=== PATIENT | male | born 1970 | race Caucasian/White ===

== ENCOUNTER → 2017-03-09 | Outpatient (CLI) | payer BC ==
[~2017-03-09] MED LIST: ASPIR 8181 MG PO; NKHM
[2017-03-09 17:13] LABS: BASO # 0.1 10*3/uL (0.0-0.1); BASO % 0.8 % (0.0-1.0); EOS # 0.3 10*3/uL (0.0-0.4); HEMATOCRIT 48.1 % (42.0-52.0); LYMPH # 2.8 10*3/uL (1.3-4.4); LYMPH % 21.8 % (27.0-41.0); MEAN CELL VOLUME 93.6 fl (80.0-94.0); MEAN CORPUSCULAR HGB 31.1 pg (27.0-31.0); MEAN CORPUSCULAR HGB CONC 33.3 g/dl (33.0-37.0); MEAN PLATELET VOLUME 9.1 fl (9.6-12.3); MONO # 0.7 10*3/uL (0.1-1.0); MONO % 5.5 % (3.0-9.0); NEUT % 69.6 % (47.0-73.0); PLATELET COUNT AUTOMATED 283 10*3/uL (130-400); RED BLOOD COUNT 5.14 10*6/uL (4.50-5.90); RED CELL DISTRI WIDTH 13.5 % (0-14.5); WHITE BLOOD COUNT 12.9 10*3/uL (4.8-10.8)
[2017-03-09 17:29] LABS: ALBUMIN 3.3 gm/dl (3.1-4.5); ALKALINE PHOSPHATASE 71 U/L (45-117); BUN 17 mg/dl (7-24); CHLORIDE 103 mmol/L (98-107); CHOLESTEROL 172 mg/dL (<200); CREATININE 1.12 mg/dL (0.70-1.30); HDL CHOLESTEROL 33 mg/dl (40-60); LDL CHOLESTEROL 87 mg/dL (9-159); MAGNESIUM 1.5 mg/dL (1.5-2.1); POTASSIUM 3.9 mmol/L (3.5-5.1); SGOT/AST 8 IU/L (3-35); SGPT/ALT 18 U/L (12-78); SODIUM 137 mmol/L (136-145); TOTAL PROTEIN 7.8 gm/dL (6.4-8.2); TRIGLYCERIDES 258 mg/dl (<150); VLDL CHOLESTEROL 52 mg/dL (6-40)
== END | disposition home or self-care (01) ==
LOC: LAB 16:23 → US 16:30
PROVIDERS: Family Medicine
DX: E11.65 Type 2 diabetes mellitus with hyperglycemia (principal); L97.522 Non-pressure chronic ulcer of other part of left foot with fat layer exposed; E78.5 Hyperlipidemia, unspecified; R22.0 Localized swelling, mass and lump, head; Z72.0 Tobacco use

== ENCOUNTER → 2018-08-25 | Outpatient (CLI) | payer OTHER ==
[~2018-08-25] MED LIST changes: +AMARYL2 MG PO; +ASPIRIN ADULT L81 M2 PO; +CIPROFLOXACIN500 M4 PO; +CLOPIDOGREL75 MG PO; +HYDR25T PO; +LISINOPRIL-HCT1 EACH PO; +LISINOPRIL10 M1 PO; +METFORMIN HYD1000 MG PO; +SIMVASTATIN10 MG PO; +VANCOMYCIN HCL1 GM IV; +VANCOMYCIN2 GM/500 M IV; +ZOSYN 3.373.375 GM/5 IV
== END | disposition home or self-care (01) ==
LOC: RAD 17:22
DX: R22.41 Localized swelling, mass and lump, right lower limb (principal); L97.511 Non-pressure chronic ulcer of other part of right foot limited to breakdown of skin

== ENCOUNTER 2018-09-07 16:38 | Inpatient (IN) | payer OTHER ==
[~2018-09-07] VITALS: Ht 175.2 cm; Wt 139.7 kg
--- NOTE | ~2018-09-07 | O ---
[place], [place] OPERATIVE NOTE NAME: MARIAMA PARSON UNIT #: [id number] ROOM: 404 DOCTOR: YURIY GUIDRY DPM BIRTHDATE: [birth year] DOS: 09/09/2018 SURGEON: Yuriy Guidry DPM. CORE MACHINE OPERATOR: Dr. Amanda Castro, resident. PREOPERATIVE DIAGNOSIS: Infection, probable osteomyelitis, infected ulcer, right great toe. POSTOPERATIVE DIAGNOSIS: Infection, probable osteomyelitis, infected ulcer, right great toe. PROCEDURE: I and D of infection, right great toe with bone biopsy. ANESTHESIA: LMAC. INJECTABLES: 10 mL of 0.5% Marcaine plain. ESTIMATED BLOOD LOSS: About 3 mL. PATHOLOGY: Bone for pathology and bone for cultures. COMPLICATIONS: None. DESCRIPTION OF PROCEDURE: After appropriate preoperative evaluation, the patient brought in the OR and placed on the OR table in supine position. Anesthesia was then administered per anesthesia record. Next, a total of 10 mL of 0.5% Marcaine plain was injected in field block fashion of the right great toe. The area was then prepped and draped in the usual sterile manner. Right foot was lowered to surgical field. Attention directed to the ulcer, plantar medial IPJ of the right great toe where there was noted to be malodor. Edema and erythema about the toe. The area was debrided incised and there was noted to be a fairly significant amount of malodor with some pulling mild purulent drainage. The IPJ was exposed and bone was exposed in the area, and was debrided of any nonviable and fibrotic tissue. Wound edges were debrided as well. Next, using a rongeur, a bone biopsy was taken from the head of the proximal phalanx of the right great toe. Then, bone cultures were taken of the area as well. The area was flushed with 3 L of normal saline using a pulse cotton weigher operator. Packing, dry dressing was applied. The patient tolerated procedure well. He was transferred from recovery with vital signs stable and intact. Wound VAC will be ordered and applied. Continue IV antibiotics per Infectious Disease, and the patient will continue to be followed while the hospital and then follow up as an outpatient. [place], [place] OPERATIVE NOTE NAME: EBMARIAMA Wisdom UNIT #: [id number] ROOM: 404 DOCTOR: YURIY GUIDRY DPM BIRTHDATE: [birth year] YURIY GUIDRY DPM CM:OPRECORD:OPERATIVE NOTE [id number] YURIY GUIDRY DPM 09/19/18 0819 interface
--- NOTE | ~2018-09-07 | PR ---
[place], [place] PROGRESS NOTE NAME: MARIAMA PARSON [facility] #: [id number] UNIT #: [id number] ROOM: 404 DOCTOR: GEMINI CHARLES DPM BIRTHDATE: [birth year] DOS: SUBJECTIVE: The patient seen one day post incision and drainage with bone biopsy of the right hallux. The patient is resting comfortably in bed. OBJECTIVE: Upon removal of packing and dressing, there is no foul odor. No signs of further abscess or purulent drainage. Decreased erythema noted. ASSESSMENT: Osteomyelitis, cellulitis, abscess first right toe. PLAN: Dressing and packing changes, the patient will be ordered to be changed daily. They are waiting for wound VAC placement and the patient will be seen for continued care and followup. GEMINI CHARLES DPM CM:PNTRANS [id number] GEMINI CHARLES DPM 09/11/18 1032 interface
--- NOTE | ~2018-09-07 | CON ---
[place], [place] REPORT OF CONSULTATION NAME: MARIAMA PARSON UNIT #: [id number] ROOM: 404 DOCTOR: GEMINI CHARLES DPM BIRTHDATE: [birth year] DOS: 09/08/2018 SUBJECTIVE: The patient was seen yesterday by Dr. Guidry at the office for an ulceration. The patient was admitted to the hospital for IV antibiotics. Infectious Disease consultation and bone biopsy. PAST SURGICAL HISTORY: Neck IV filter, status post left foot surgery. PAST MEDICAL HISTORY: Increased BMI; diabetic neuropathy; previous DVT, left leg; essential hypertension; GERD; CVA; hyperlipidemia; mass, lateral neck; type 2 diabetes, non-insulin dependent. SOCIAL HISTORY: Denies alcohol or illicit drug use. Tobacco abuse 1-1.5 packs per day for 40 years. FAMILY HISTORY: Father alive and well. Mother of CVA. ALLERGIES: No known drug allergies. LOWER EXTREMITY EXAMINATION: Pedal pulses palpable, decreased epicritic sensations. There is an ulceration to the medial IPJ of the right hallux with serous drainage. The ulceration extends to the level of the bone. The patient's right foot MRI was consistent with osteomyelitis of the proximal and distal phalanx of the right hallux. ASSESSMENT: Cellulitis, infection of the right hallux with possible osteomyelitis, diabetes, diabetic neuropathy. PLAN: Evaluation and management discussed with the patient. Dr. Guidry performed an incision and drainage with bone biopsy with possible amputation of the right hallux. The patient understood this in detail and will be reassessed tomorrow before surgery by Dr. Guidry. The orders were written for n.p.o. after midnight and the consent for surgery. The patient will discuss the case further with Dr. Guidry tomorrow. GEMINI CHARLES DPM CM:CONSTR:REPORT OF CONSULTATION 1630 09/09/18 1430 interface
--- NOTE | ~2018-09-07 | CON ---
[place], [place] REPORT OF CONSULTATION [id number] UNIT #: [id number] ROOM: 404 [facility] [birth year] DOS: 09/11/2018 CARDIOLOGY CONSULTATION HISTORY OF PRESENT ILLNESS: The patient is a 48-year-old male who came in with sepsis and osteomyelitis, had a surgery done. The patient has severe peripheral arterial disease and I have taken care of him with peripheral arterial disease in the past with an intervention. The patient developed a wound. I discussed at length. Flow frequency was markedly diminished in both lower extremities, especially at the superficial femoral and below, both right and left also. Diffuse atherosclerosis noted with diffuse peripheral arterial disease monophasic and both inlet and outlet vessels are considered also and infrapopliteal vessels also. Severe peripheral artery disease with the wound and osteomyelitis and the surgery evaluated for healing of the wound, the patient should have improved perfusion that may help and the aortobifemoral angio with possible revascularization. Options, procedure, complications, morbidity, mortality explained to the patient. Both dorsalis pedis and posterior tibial markedly diminished on both lower extremities. PHYSICAL EXAMINATION: VITAL SIGNS: Stable. NECK: No jugular venous noted. LUNGS: Diminished breath sounds at bases. HEART: S1, S2 regular. ABDOMEN: Soft, obese. PLAN: I explained to the patient, the patient agreed to come to [place] and have the procedure done and possible revascularization done. DOMO RUSH MD CM:CONSTR:REPORT OF CONSULTATION 1410 09/11/18 2240 interface
--- NOTE | ~2018-09-07 | EKG ---
[place], [place] ELECTROCARDIOGRAM REPORT NAME: MARIAMA PARSON UNIT #: [id number] ROOM: 404 DOCTOR: DAISY DRAFT REPORT BIRTHDATE: [birth year] [facility] Test Date: 2018-09-07 Test Time: 20:27:16 Pat Name: MARIAMA PARSON Department: Room: 404 2 Gender: M Press Machine Operator: EKG.NC : 1970 Requested By: SAMUEL DENIS Order Number: [id number] Reading MD: Opal Chaves MD Measurements Intervals [place] Rate: 82 P: 32 ME: 133 QRS: 69 QRSD: 96 T: 49 QT: 358 QTc: 418 Interpretive Statements Sinus rhythm Low voltage, precordial leads Electronically Signed On 09-08-2018 15:31:31 PST by Opal Chavse MD CM:EKGRPT:ELECTROCARDIOGRAM REPORT 26 1531 SAMUEL EDWARDS DRAFT REPORT SAMUEL DENIS DO
[~2018-09-07 16:38] MED LIST changes: -AMARYL2 MG PO; -ASPIRIN ADULT L81 M2 PO; -CIPROFLOXACIN500 M4 PO; -CLOPIDOGREL75 MG PO; -HYDR25T PO; -LISINOPRIL-HCT1 EACH PO; -LISINOPRIL10 M1 PO; -METFORMIN HYD1000 MG PO; -SIMVASTATIN10 MG PO; -VANCOMYCIN HCL1 GM IV; -VANCOMYCIN2 GM/500 M IV; -ZOSYN 3.373.375 GM/5 IV
[2018-09-07 16:41] VITALS: BP 114/74
[2018-09-07 17:27] LABS: BASO # 0.1 10*3/uL (0.0-0.1); BASO % 0.6 % (0.0-1.0); EOS # 0.2 10*3/uL (0.0-0.4); EOS % 1.3 % (1.0-4.0); HEMATOCRIT 46.5 % (42.0-52.0); HEMOGLOBIN 15.1 g/dl (14.0-18.0); LYMPH # 2.4 10*3/uL (1.3-4.4); LYMPH % 16.4 % (27.0-41.0); MEAN CORPUSCULAR HGB 30.2 pg (27.0-31.0); MEAN CORPUSCULAR HGB CONC 32.5 g/dl (33.0-37.0); MEAN PLATELET VOLUME 8.9 fl (9.6-12.3); MONO # 0.8 10*3/uL (0.1-1.0); MONO % 5.1 % (3.0-9.0); NEUT # 11.2 10*3/uL (2.3-7.9); NEUT % 76.3 % (47.0-73.0); PLATELET COUNT AUTOMATED 409 10*3/uL (130-400); RED CELL DISTRI WIDTH 12.8 % (0-14.5); WHITE BLOOD COUNT 14.7 10*3/uL (4.8-10.8)
--- NOTE | 2018-09-07 17:30 | NUR ---
CRITICAL LAB RESULTS GIVEN TO DR TORRES
[2018-09-07 17:35] LABS: ACT PARTIAL THROMBO TIME 22.4 SECONDS (20.8-31.5)
[2018-09-07 17:51] LABS: ALBUMIN 2.8 gm/dl (3.1-4.5); ALKALINE PHOSPHATASE 81 U/L (45-117); BUN 25 mg/dl (7-24); CHLORIDE 101 mmol/L (98-107); PHOSPHOROUS 2.2 mg/dL (2.5-4.9); POTASSIUM 3.8 mmol/L (3.5-5.1); SGOT/AST 6 IU/L (3-35); SGPT/ALT 12 U/L (12-78); SODIUM 136 mmol/L (136-145); TOTAL PROTEIN 8.2 gm/dL (6.4-8.2)
--- NOTE | 2018-09-07 18:45 | NUR ---
Time: 1844 A 48 year old MALE admitted to under services of VANDANA BARTON DO. Pt. arrived via bed from ER. Chief complaint: INFECTION. MARY TAYLOR
[2018-09-07] MEDS ORDERED: LISINOPRIL-HCT1 EACH PO (18:56)
[2018-09-07] MEDS ORDERED: CIPROFLOXACIN500 M4 PO (18:56)
[2018-09-07] MEDS ORDERED: LISINOPRIL10 M1 PO (18:58)
[2018-09-07] MEDS ORDERED: SIMVASTATIN10 MG PO (18:59)
[2018-09-07] MEDS ORDERED: AMARYL2 MG PO (19:00)
[2018-09-07] MEDS ORDERED: CLOPIDOGREL75 MG PO (19:00)
[2018-09-07] MEDS ORDERED: METFORMIN HYD1000 MG PO ×2 (19:01→19:02)
[2018-09-07 19:03] VITALS: BP 121/75
[2018-09-07] MEDS ORDERED: ASPIRIN ADULT L81 M2 PO (19:03)
[2018-09-07 20:15] VITALS: BP 121/75
--- NOTE | 2018-09-07 20:53 | NUR ---
Message left with answering service regarding consult for Dr. Guidry at foot and ankle.
[2018-09-08] VITALS: BP 99/50
--- NOTE | 2018-09-08 01:17 | NUR ---
24 HR chart check completed.
--- NOTE | 2018-09-08 05:26 | NUR ---
MARIAMA PARSON [id number] Please refer to the physician's history and physical for past medical history, comorbid conditions, and allergies. Diagnosis: SEVERE SEPSIS, OSTEOMYELITIS Duncan Score: 21,LOW OR NO RISK WOUND DESCRIPTIONS: Location of the wound: medial aspect of right great toe Type of wound: stage 4 Thickness: Full Size: 1.5cm x 2.4cm x 1.5cm Tunnelin-9 o'clock 1.5cm Undermining: none Sinus Tract: none Presence of Exudate: Purulent Amount: Moderate Color: Yellow, red Odor: Foul Periwound Skin Appearance: Macerated, erythema Wound edges: approximated Pain (associated with wound): tender to touch at times How does patient state this happened? pt stated he got new steel toe boots and a blistered developed in beginning of July and by the end of July the area opened and he was following with ankle and foot out in [place] for the area. He believes it was Dr. Guidry. Surface the patient is resting on: Isoflex SKIN PREVENTION RECOMMENDATION: 1. Pressure redistribution support surface as appropriate 2. Elevate heels 3. Remove boots/TEDS every shift and reapply 4. Head of bed 30 degrees as tolerated 5. Assess nutrition and hydration 6. Manage moisture 7. Avoid the use of containment devices while in bed 8. Use absorptive products on surfaces limit layers of linens on bed 9. Turn and reposition every 1-2 hours in bed and every 1 hour in chair as tolerated 10. Weight shifts every 15 minutes while up in chair 11. Offloading with pillows or device to keep heels elevated off bed 12. Monitor skin at least every shift 13. Inspect under medical devices twice a day WOUND TREATMENT RECOMMENDATIONS: Venous and arterial studies to BLE's due to non-healing wound. Stage 4 guidelines: Cleanse medial aspect of right great toe with nss and apply sureprep around the wound therahoney to wound bed lightly pack with maxorb rope and cover with dsd daily and prn for soiling. Consult podiatry for possible debridement and for abnormal MRI which was completed outpatient on 09/05/18. Patient is unsure on what he wants for wound care upon discharge at this time. Patient stated he will notify us of his wishes based on his stay.
[2018-09-08 06:30] LABS: BUN 23 mg/dl (7-24); CHLORIDE 105 mmol/L (98-107); CREATININE 1.14 mg/dL (0.70-1.30); PHOSPHOROUS 3.5 mg/dL (2.5-4.9); POTASSIUM 3.6 mmol/L (3.5-5.1); SODIUM 141 mmol/L (136-145)
[2018-09-08 06:34] LABS: BASO # 0.1 10*3/uL (0.0-0.1); BASO % 0.6 % (0.0-1.0); EOS # 0.2 10*3/uL (0.0-0.4); EOS % 1.7 % (1.0-4.0); LYMPH # 2.5 10*3/uL (1.3-4.4); MEAN CELL VOLUME 94.7 fl (80.0-94.0); MEAN CORPUSCULAR HGB 29.4 pg (27.0-31.0); MEAN CORPUSCULAR HGB CONC 31.1 g/dl (33.0-37.0); MEAN PLATELET VOLUME 9.1 fl (9.6-12.3); MONO # 0.6 10*3/uL (0.1-1.0); NEUT % 67.4 % (47.0-73.0); PLATELET COUNT AUTOMATED 323 10*3/uL (130-400); RED BLOOD COUNT 4.35 10*6/uL (4.50-5.90); RED CELL DISTRI WIDTH 12.8 % (0-14.5); WHITE BLOOD COUNT 10.4 10*3/uL (4.8-10.8)
[2018-09-08 06:39] LABS: FREE T4 1.21 ng/dl (0.76-1.46)
[2018-09-08 06:49] LABS: HEMATOCRIT 41.2 % (42.0-52.0); HEMOGLOBIN 12.8 g/dl (14.0-18.0)
[2018-09-08 07:32] LABS: VITAMIN D, 25-HYDROXY 9.9 ng/mL (30-100)
[2018-09-08 08:00] VITALS: BP 105/48
--- NOTE | 2018-09-08 09:00 | NUR ---
Metal Sash Setter in to talk to patient. Patient states lives at home with family. There are few steps in the home. Physician: jackelyn canales [facility]acy[facility] Home health services: none Patient's level of ADLs: INDEPENDENT Patient has working utilities: all working DME: none Follow-up physician's appointment after d/c: will be made by hospitalist nurse director upon discharge Does patient want to access PORTAL?: no Discharge plan discussed with patient, patient lives at home with family, is independent in adls and ambulation, patient states he will be going home when able and denies any home needs at this time, case management will follow. NATASHA PRESCOTT
--- NOTE | 2018-09-08 10:05 | NUR ---
Provided a diabetic diet copy to patient this AM. Pt does not follow any type of diet at home and does not check blood sugars. Encouraged him to eat 3 meals and night snack, along with paying attention to the carbohydrates he is eating each meal. Encouraged further questions to come to myself or Neha Dorsey RDN, LD. Bev Pedraza [employer]
[2018-09-08 12:00] VITALS: BP 96/52
--- NOTE | 2018-09-08 13:46 | NUR ---
PATIENT'S IV SHOWED S/S OF INFILTRATION. IV WAS DISCONTINUED AND SU PADILLA FROM ICU PLACED A MIDLINE IN PTS RIGHT ARM. MIDLINE FLSUHES WELL AND HAS GOOD BLOOD RETURN. WILL CONTINUE TO MONITOR.
--- NOTE | 2018-09-08 15:39 | NUR ---
DR. SANDRA NOTIFIED OF CONSULT.
[2018-09-08 16:00] VITALS: BP 108/49
--- NOTE | 2018-09-08 16:54 | NUR ---
PT OFF OF FLOOR FOR ULTRASOUND
--- NOTE | 2018-09-08 17:07 | NUR ---
PT RETURNS TO FLOOR. M
[2018-09-08 20:00] VITALS: BP 129/53
[2018-09-09] VITALS (9 sets, daily range): BP systolic 100–130; BP diastolic 44–62
[2018-09-09 06:37] LABS: BASO # 0.1 10*3/uL (0.0-0.1); EOS # 0.2 10*3/uL (0.0-0.4); EOS % 1.9 % (1.0-4.0); HEMATOCRIT 42.4 % (42.0-52.0); HEMOGLOBIN 13.1 g/dl (14.0-18.0); LYMPH % 24.5 % (27.0-41.0); MEAN CELL VOLUME 93.8 fl (80.0-94.0); MEAN CORPUSCULAR HGB CONC 30.9 g/dl (33.0-37.0); MEAN PLATELET VOLUME 9.2 fl (9.6-12.3); MONO # 0.5 10*3/uL (0.1-1.0); NEUT # 5.5 10*3/uL (2.3-7.9); NEUT % 66.4 % (47.0-73.0); PLATELET COUNT AUTOMATED 298 10*3/uL (130-400); RED BLOOD COUNT 4.52 10*6/uL (4.50-5.90); RED CELL DISTRI WIDTH 12.8 % (0-14.5); WHITE BLOOD COUNT 8.3 10*3/uL (4.8-10.8)
[2018-09-09 06:56] LABS: BUN 14 mg/dl (7-24); CHLORIDE 104 mmol/L (98-107); CREATININE 1.03 mg/dL (0.70-1.30); POTASSIUM 3.9 mmol/L (3.5-5.1); SODIUM 139 mmol/L (136-145)
--- NOTE | 2018-09-09 08:36 | NUR ---
PT SEEN AT THIS TIME. PT SLEEPING BUT AROUSES EASILY. PTS MIDLINE WAS SLUGGISH WHILE FLUSHING. 1 HEPARIN FLUSH USED AT THIS TIME. NO SIGNS OF SOB OR DISTRESS. BED IN LOWEST POSITION AND WHEELS LOCKED. CALL LIGHT IS WITHIN REACH. NPO MAINTAINED.
--- NOTE | 2018-09-09 09:00 | NUR ---
case management visits with patient, discussed a discharge with patient, patient stated he wasn't sure what if anything he would need upon discharge. case management will follow
--- NOTE | 2018-09-09 11:00 | NUR ---
PT TAKEN OFF OF FLOOR TO SURGERY
--- NOTE | 2018-09-09 16:01 | NUR ---
DR. RICHARDS ANSWERING SERVICE NOTIFIED OF CONSULT.
--- NOTE | 2018-09-09 17:59 | NUR ---
PT SEEN AT THIS TIME. PT COMFORTABLE IN BED. NO COMPLAINTS AT THIS TIME. NO SOB NOTED AND NO SIGNS OF DISTRESS. BED IN LOWEST LOCKED POSITION. CALL LIGHT WITHIN REACH. WILL CONTINUE TO MONITOR.
[2018-09-10] VITALS: BP 132/47
--- NOTE | 2018-09-10 07:00 | NUR ---
PT ASLEEP IN BED. REPORT RECIEVED. NO S/S OF DISTRESS NOTED AT THIS TIME. WILL CONTINUE TO MONITOR.
[2018-09-10 07:06] LABS: BASO # 0.1 10*3/uL (0.0-0.1); BASO % 0.7 % (0.0-1.0); EOS # 0.2 10*3/uL (0.0-0.4); EOS % 2.2 % (1.0-4.0); HEMATOCRIT 41.5 % (42.0-52.0); HEMOGLOBIN 13.2 g/dl (14.0-18.0); LYMPH # 2.2 10*3/uL (1.3-4.4); LYMPH % 25.1 % (27.0-41.0); MEAN CELL VOLUME 93.9 fl (80.0-94.0); MEAN CORPUSCULAR HGB 29.9 pg (27.0-31.0); MEAN CORPUSCULAR HGB CONC 31.8 g/dl (33.0-37.0); MEAN PLATELET VOLUME 9.3 fl (9.6-12.3); MONO # 0.5 10*3/uL (0.1-1.0); MONO % 5.4 % (3.0-9.0); NEUT # 5.7 10*3/uL (2.3-7.9); NEUT % 66.4 % (47.0-73.0); PLATELET COUNT AUTOMATED 300 10*3/uL (130-400); RED BLOOD COUNT 4.42 10*6/uL (4.50-5.90); RED CELL DISTRI WIDTH 12.7 % (0-14.5); WHITE BLOOD COUNT 8.6 10*3/uL (4.8-10.8)
[2018-09-10 07:28] LABS: BUN 12 mg/dl (7-24); CHLORIDE 105 mmol/L (98-107); CREATININE 1.07 mg/dL (0.70-1.30); POTASSIUM 3.8 mmol/L (3.5-5.1); SODIUM 140 mmol/L (136-145)
[2018-09-10 08:00] VITALS: BP 115/61
[2018-09-10 12:00] VITALS: BP 118/52
[2018-09-10 16:00] VITALS: BP 122/54
--- NOTE | 2018-09-10 18:32 | NUR ---
DR RUSH IN TO SEE PATIENT. WILL TRANSFER PATIENT TO [facility] IN THE MORNING.
[2018-09-10 20:00] VITALS: BP 129/55
[2018-09-11] VITALS: BP 104/47
--- NOTE | 2018-09-11 03:32 | NUR ---
24 HR chart check completed.
[2018-09-11 06:00] LABS: BASO # 0.1 10*3/uL (0.0-0.1); BASO % 0.7 % (0.0-1.0); EOS # 0.2 10*3/uL (0.0-0.4); EOS % 2.1 % (1.0-4.0); HEMATOCRIT 39.5 % (42.0-52.0); HEMOGLOBIN 12.7 g/dl (14.0-18.0); LYMPH # 2.2 10*3/uL (1.3-4.4); LYMPH % 25.5 % (27.0-41.0); MEAN CELL VOLUME 93.2 fl (80.0-94.0); MEAN CORPUSCULAR HGB CONC 32.2 g/dl (33.0-37.0); MEAN PLATELET VOLUME 9.3 fl (9.6-12.3); MONO # 0.5 10*3/uL (0.1-1.0); MONO % 5.1 % (3.0-9.0); NEUT # 5.8 10*3/uL (2.3-7.9); NEUT % 66.1 % (47.0-73.0); PLATELET COUNT AUTOMATED 305 10*3/uL (130-400); RED BLOOD COUNT 4.24 10*6/uL (4.50-5.90); RED CELL DISTRI WIDTH 12.9 % (0-14.5); WHITE BLOOD COUNT 8.7 10*3/uL (4.8-10.8)
[2018-09-11 06:25] LABS: BUN 12 mg/dl (7-24); CHLORIDE 105 mmol/L (98-107); CREATININE 1.09 mg/dL (0.70-1.30); SODIUM 139 mmol/L (136-145)
[2018-09-11 08:00] VITALS: BP 134/58
[2018-09-11 12:00] VITALS: BP 152/71
[2018-09-11] MEDS ORDERED: HYDR25T PO (13:33)
[2018-09-11] MEDS ORDERED: VANCOMYCIN2 GM/500 M IV (13:33)
[2018-09-11] MEDS ORDERED: ZOSYN 3.373.375 GM/5 IV (13:33)
--- NOTE | 2018-09-11 15:30 | NUR ---
Discharge instructions reviewed with patient/family. Patient receptive and verbalizes understanding. Follow-up care arranged. Written instructions given to patient/family. PATIENT TAKEN FROM FLOOR BY AMBULANCE. NO S/S OF DISTRESS. HELEN CROCKETT
[2018-09-20] MEDS ORDERED: VANCOMYCIN HCL1 GM IV (09:56)
== END 2018-09-11 15:30 | disposition short-term general hospital (02) | DRG 853 ==
LOC: ED 16:38 → 4E 18:18 → EDHOLD 18:18 → 4E 18:36
PROVIDERS: Family Medicine; Internal Medicine; ADMIT Internal Medicine
PROC: 0QBQ0ZZ Excision of Right Toe Phalanx, Open Approach (ICD-10-PCS; principal; 2018-09-09)
PROC: 0QBQ0ZX Excision of Right Toe Phalanx, Open Approach, Diagnostic (ICD-10-PCS; principal; 2018-09-09)
DX: A41.9 Sepsis, unspecified organism (principal); L89.893 Pressure ulcer of other site, stage 3; M00.9 Pyogenic arthritis, unspecified; E44.0 Moderate protein-calorie malnutrition; E87.2 Acidosis; N17.9 Acute kidney failure, unspecified; Z68.42 Body mass index [BMI] 45.0-49.9, adult; M86.8X7 Other osteomyelitis, ankle and foot; E11.621 Type 2 diabetes mellitus with foot ulcer; L97.509 Non-pressure chronic ulcer of other part of unspecified foot with unspecified severity; R65.20 Severe sepsis without septic shock; E11.40 Type 2 diabetes mellitus with diabetic neuropathy, unspecified; I10 Essential (primary) hypertension; K21.9 Gastro-esophageal reflux disease without esophagitis; E78.5 Hyperlipidemia, unspecified; F17.210 Nicotine dependence, cigarettes, uncomplicated; L98.9 Disorder of the skin and subcutaneous tissue, unspecified; E11.65 Type 2 diabetes mellitus with hyperglycemia; D47.3 Essential (hemorrhagic) thrombocythemia; E83.39 Other disorders of phosphorus metabolism; Z79.84 Long term (current) use of oral hypoglycemic drugs; Z86.73 Personal history of transient ischemic attack (TIA), and cerebral infarction without residual deficits; E11.41 Type 2 diabetes mellitus with diabetic mononeuropathy; Z82.3 Family history of stroke; Z86.718 Personal history of other venous thrombosis and embolism; Z79.82 Long term (current) use of aspirin; Z71.6 Tobacco abuse counseling; E11.69 Type 2 diabetes mellitus with other specified complication; Z79.4 Long term (current) use of insulin

== ENCOUNTER 2023-01-07 07:59 | Emergency (ER) | payer OTHER ==
[~2023-01-07] VITALS: Ht 177.8 cm; Wt 134.3 kg
[~2023-01-07 07:59] MED LIST changes: +AMARYL2 MG PO; +ASPIRIN ADULT L81 M2 PO; +CIPROFLOXACIN500 M4 PO; +CLOPIDOGREL75 MG PO; +HYDR25T PO; +LISINOPRIL-HCT1 EACH PO; +LISINOPRIL10 M1 PO; +METFORMIN HYD1000 MG PO; +SIMVASTATIN10 MG PO; +VANCOMYCIN HCL1 GM IV; +VANCOMYCIN2 GM/500 M IV; +ZOSYN 3.373.375 GM/5 IV
== END 2023-01-07 08:04 ==
LOC: ED 07:59
DX: I46.9 Cardiac arrest, cause unspecified (principal); E11.9 Type 2 diabetes mellitus without complications; I10 Essential (primary) hypertension; F17.200 Nicotine dependence, unspecified, uncomplicated; Z79.899 Other long term (current) drug therapy; Z79.82 Long term (current) use of aspirin; Z98.890 Other specified postprocedural states